=== PATIENT | male | born 1985 | race Native Hawaiian/Other Pacific Islander ===

== ENCOUNTER 2017-08-25 13:43 | Emergency (ER) | payer OTHER ==
[~2017-08-25] VITALS: Ht 182.9 cm; Wt 660.4 kg
[~2017-08-25 13:43] MED LIST: CIPRO500 MG OR; LEVAQUIN500 MG OR; MUPI2OIN2 TOP
[2017-08-25 13:55] VITALS: BP 124/73; TEMP 98.1
== END 2017-08-25 15:01 | disposition home or self-care (01) ==
LOC: ED 13:43
DX: R23.8 Other skin changes (principal)
CPT/HCPCS: 99281

== ENCOUNTER 2017-09-02 20:33 | Emergency (ER) | payer OTHER ==
[~2017-09-02] VITALS: Ht 182.9 cm; Wt 61.2 kg
[2017-09-02 23:53] VITALS: BP 139/69; TEMP 98
== END 2017-09-02 23:55 | disposition home or self-care (01) ==
LOC: ED 20:33
DX: S02.82XA Fracture of other specified skull and facial bones, left side, initial encounter for closed fracture (principal); S02.40DA Maxillary fracture, left side, initial encounter for closed fracture; S00.83XA Contusion of other part of head, initial encounter; S00.03XA Contusion of scalp, initial encounter; S00.01XA Abrasion of scalp, initial encounter; S00.81XA Abrasion of other part of head, initial encounter; Y09 Assault by unspecified means; Y93.89 Activity, other specified; Y92.89 Other specified places as the place of occurrence of the external cause
CPT/HCPCS: 99283

== ENCOUNTER 2021-06-14 13:23 | Emergency (ER) | payer OTHER ==
[~2021-06-14] VITALS: Ht 185.4 cm; Wt 65.8 kg
[2021-06-14 13:29] VITALS: BP 171/77; TEMP 97.1
== END 2021-06-14 14:30 | disposition home or self-care (01) ==
LOC: ED 13:23
DX: Q81.8 Other epidermolysis bullosa (principal)
CPT/HCPCS: 96372; 99282; J3490

== ENCOUNTER 2021-07-01 11:49 | Emergency (ER) | payer OTHER ==
[~2021-07-01] VITALS: Ht 185.4 cm; Wt 56.7 kg
[2021-07-01 12:15] VITALS: BP 110/76; TEMP 97.5
== END 2021-07-01 13:40 | disposition home or self-care (01) ==
LOC: ED 11:49
DX: Q81.8 Other epidermolysis bullosa (principal)
CPT/HCPCS: 99281

== ENCOUNTER 2021-10-08 05:35 | Emergency (ER) | payer OTHER ==
[~2021-10-08] VITALS: Ht 185.4 cm; Wt 54.4 kg
[2021-10-08 06:40] VITALS: BP 108/68; TEMP 97.8
== END 2021-10-08 06:40 | disposition home or self-care (01) ==
LOC: ED 05:35
DX: L02.215 Cutaneous abscess of perineum (principal); L03.315 Cellulitis of perineum
CPT/HCPCS: 96372; 99283; J1885